=== PATIENT | male | born 1980 | race Caucasian/White ===

== ENCOUNTER 2018-01-27 10:31 | Emergency (ER) | payer BC ==
[~2018-01-27] VITALS: Ht 188 cm; Wt 90.7 kg
[2018-01-27 11:22] VITALS: BP 123/82
[2018-01-27] MEDS ORDERED: methylPREDNISolone SOD SUCC 125 MG/2 ML VL IM ONE (11:30)
[2018-01-27] MEDS ORDERED: diphenhdrAMINE HCL 25 MG CAP PO ONE (11:45)
== END 2018-01-27 12:47 | disposition home or self-care (01) ==
LOC: ER 10:31
DX: T78.40XA Allergy, unspecified, initial encounter (principal)
CPT/HCPCS: 96372; 99283; J2930